=== PATIENT | male | born 1950 | race Caucasian/White ===

== ENCOUNTER 2023-05-27 09:03 | Observation (INO) | payer OTHER ==
[~2023-05-27] VITALS: Ht 172.7 cm; Wt 81.6 kg
[2023-05-27 09:12] VITALS: BP 135/71; PULSE 77; RESP 18; TEMP 98.7; O2SAT 100
[2023-05-27] MEDS ORDERED: NACL 0.9% 1,000 ML IV ONE (10:15)
[2023-05-27 10:29] VITALS: O2SAT 96
[2023-05-27 11:13] LABS: BASOPHILS % (AUTO) 0.1 % (0.0-2.0); EOSINOPHILS # (AUTO) 0.3 K/uL (0-0.4); EOSINOPHILS % (AUTO) 4.4 % (0.0-4.0); HEMATOCRIT 38.9 % (36-48); HEMOGLOBIN 13.6 g/dL (12.0-16.0); LYMPHOCYTES # (AUTO) 1.5 K/uL (2.5-16.5); LYMPHOCYTES % (AUTO) 18.9 % (20.5-51.1); MEAN CORPUSCULAR HEMOGLOBIN 32 pg (27-31); MEAN CORPUSCULAR HGB CONC 35 g/dL (33-37); MEAN CORPUSCULAR VOLUME 90.9 fL (80-94); MONOCYTES # (AUTO) 0.3 K/uL (0.8-1.0); MONOCYTES % (AUTO) 4.4 % (1.7-9.3); NEUTROPHILS # (AUTO) 5.6 K/uL (1.8-7.7); NEUTROPHILS % (AUTO) 72.2 % (42.2-75.2); PLATELET COUNT (AUTO) 274 K/uL (140-450); RED BLOOD CELL COUNT(AUTO) 4.28 MIL/uL (4.20-5.40); RED CELL DISTRIBUTION WIDTH 12.9 % (11.6-13.7); WHITE BLOOD COUNT (AUTO) 7.8 K/uL (4.8-10.8)
[2023-05-27] MEDS ORDERED: DIPHENOXYLATE /ATROPINE 2.5 MG TAB PO ONE (11:35)
[2023-05-27 11:40] LABS: ALANINE AMINOTRANSFERASE 27 U/L (12-78); ALBUMIN 3.9 g/dL (3.4-5.0); ALKALINE PHOSPHATASE 45 U/L (50-136); ANION GAP 11.8 (8-16); ASPARTATE AMINOTRANSFERASE 23 U/L (15-37); CALCIUM 8.9 mg/dL (8.5-10.1); CHLORIDE 104 mmol/L (98-107); CREATININE 1.1 mg/dL (0.6-1.3); GLUCOSE 130 mg/dL (74-106); POTASSIUM 3.8 mmol/L (3.5-5.1); SODIUM SERUM 140 mmol/L (136-145); TOTAL BILIRUBIN 0.5 mg/dL (0.0-1.0); TOTAL PROTEIN, SERUM 7.7 g/dL (6.4-8.2); UREA NITROGEN, BLOOD 15 mg/dL (7-18)
[2023-05-27 11:47] LABS: INR 0.99 (0.8-1.2); PARTIAL THROMBOPLASTIN TIME 21.9 secs (22-35.6); PROTHROMBIN TIME 10.4 secs (10.8-13.4)
[2023-05-27] MEDS ORDERED: ASPIRIN 81 MG TAB.CHEW PO ONE (13:10)
[2023-05-27 17:24] LABS: APPEARANCE,URINE CLEAR (CLEAR); BILIRUBIN,URINE NEGATIVE (NEGATIVE); BLOOD, URINE NEGATIVE (NEGATIVE); COLOR,URINE YELLOW (YELLOW); LEUKOCYTE ESTERASE ,URINE TRACE (NEGATIVE); NITRITE, URINE NEGATIVE (NEGATIVE); PROTEIN,URINE NEGATIVE (NEGATIVE); UGLUCOSE NEGATIVE (NEGATIVE); UROBILINOGEN,URINE 0.2 EU/dL (0.2 - 1)
[2023-05-27 17:35] LABS: BACTERIA,URINE OCCASSIONAL /HPF (None Seen); RBC,URINE NONE SEEN /HPF (0-5); SQUAMOUS EPITHELIAL CELL,UR None Seen /LPF (0-3 (FEW)); WBC,URINE 0-5 /HPF (0-5)
[2023-05-27] MEDS ORDERED: SIMV-33 PO (18:50)
[2023-05-27] MEDS ORDERED: MORPHINE SULFATE 2 MG/ML SYR IVP PRN (18:50)
[2023-05-27] MEDS ORDERED: ZOLPIDEM 5 MG TAB PO PRN (18:50)
[2023-05-27] MEDS ORDERED: SEMA1PEN3 SUBQ (18:50)
[2023-05-27] MEDS ORDERED: ACETAMINOPHEN 325 MG TAB PO PRN (18:50)
[2023-05-27] MEDS ORDERED: HYDR-3320 PO (18:50)
[2023-05-27] MEDS ORDERED: PAX20 PO (18:50)
[2023-05-27] MEDS ORDERED: NITROGLYCERIN 0.4 MG TAB SL PRN (18:50)
[2023-05-27] MEDS ORDERED: METF-352 PO (18:50)
[2023-05-27 20:55] VITALS: BP 136/72; PULSE 78; RESP 18; TEMP 97.5; O2SAT 97
[2023-05-27] MEDS: METOPROLOL 25 MG TAB PO SCH (21:11)
[2023-05-27 21:24] VITALS: PULSE 78
[2023-05-28] VITALS: BP 143/77; PULSE 71; PULSE 74; RESP 18; TEMP 97.2; O2SAT 98
[2023-05-28 04:00] VITALS: BP 138/77; PULSE 69; PULSE 73; RESP 18; TEMP 97.9; O2SAT 99
[2023-05-28 06:13] LABS: BASOPHILS % (AUTO) 0.3 % (0.0-2.0); EOSINOPHILS # (AUTO) 0.4 K/uL (0-0.4); EOSINOPHILS % (AUTO) 6.4 % (0.0-4.0); HEMATOCRIT 36.7 % (36-52); HEMOGLOBIN 12.9 g/dL (12.0-18.0); LYMPHOCYTES # (AUTO) 1.8 K/uL (2.0-11.5); LYMPHOCYTES % (AUTO) 27.2 % (20.5-51.1); MEAN CORPUSCULAR HEMOGLOBIN 32 pg (27-31); MEAN CORPUSCULAR HGB CONC 35 g/dL (33-37); MEAN CORPUSCULAR VOLUME 90.4 fL (80-94); MONOCYTES # (AUTO) 0.6 K/uL (0.8-1.0); MONOCYTES % (AUTO) 8.9 % (1.7-9.3); NEUTROPHILS # (AUTO) 3.7 K/uL (1.8-7.7); NEUTROPHILS % (AUTO) 57.2 % (42.2-75.2); PLATELET COUNT (AUTO) 261 K/uL (140-450); RED BLOOD CELL COUNT(AUTO) 4.06 MIL/uL (4.20-6.10); RED CELL DISTRIBUTION WIDTH 13.2 % (11.6-13.7); WHITE BLOOD COUNT (AUTO) 6.5 K/uL (4.8-10.8)
[2023-05-28 06:18] LABS: CALCIUM 8.7 mg/dL (8.5-10.1); CARBON DIOXIDE 30.4 mmol/L (21-32); CHLORIDE 106 mmol/L (98-107); CREATININE 1.1 mg/dL (0.6-1.3); GLUCOSE 120 mg/dL (74-106); POTASSIUM 4.4 mmol/L (3.5-5.1); SODIUM SERUM 140 mmol/L (136-145); UREA NITROGEN, BLOOD 15 mg/dL (7-18)
[2023-05-28 06:24] LABS: CHOL/HDL RATIO 2.6 (1-4.5); MAGNESIUM 1.8 mg/dL (1.8-2.4)
[2023-05-28 08:00] VITALS: BP 133/58; PULSE 77; PULSE 80; RESP 18; TEMP 97.3; O2SAT 97
[2023-05-28] MEDS: METOPROLOL 25 MG TAB PO SCH (08:37)
[2023-05-28] MEDS ORDERED: ATORVASTATIN 20 MG TAB ONE (08:42)
[2023-05-28] MEDS ORDERED: ASPIRIN 81 MG TAB.CHEW PO SCH (09:00)
[2023-05-28] MEDS ORDERED: ATORVASTATIN 20 MG TAB PO SCH (09:00)
[2023-05-28 12:00] VITALS: BP 133/79; PULSE 108; PULSE 76; RESP 18; TEMP 97.3; O2SAT 96
[2023-05-28] MEDS ORDERED: AMLO-271 PO (16:13)
[2023-05-29] MEDS ORDERED: lisinopriL 10 MG TAB PO SCH (09:00)
== END 2023-05-28 17:30 | disposition home or self-care (01) ==
LOC: MED 09:03 → EDSEX 09:03 → MTU 16:06 → OBSVTOIN 05-28 11:04 → INTOOBSV 05-28 11:04 → UNDODISIN 05-28 17:30
PROVIDERS: ADMIT Student in an Organized Health Care Education/Training Program; ATTEND Student in an Organized Health Care Education/Training Program
DX: R07.89 Other chest pain (principal); R55 Syncope and collapse; R42 Dizziness and giddiness; E11.9 Type 2 diabetes mellitus without complications; I10 Essential (primary) hypertension; E78.5 Hyperlipidemia, unspecified; Z79.899 Other long term (current) drug therapy
CPT/HCPCS: 36415; 70450; 71045; 80048; 80053; 80061; 81001; 83735; 83880; 84484; 85025; 85610; 85730; 87081; 93005; 99285; C8929; G0378